=== PATIENT | female | born 1940 | race Caucasian/White ===

== ENCOUNTER 2021-08-07 14:58 | Emergency (ER) | payer MEDICARE, MEDICAID ==
[~2021-08-07] VITALS: Ht 157.5 cm; Wt 68.2 kg
[2021-08-07 16:42] LABS: BASOPHILS # (AUTO) 0.1 X10'3 (0-0.2); MEAN CORPUSCULAR VOLUME 101.1 FL (78-98)
[2021-08-07 16:44] LABS: BASOPHILS % (AUTO) 1.9 % (0-1); EOSINOPHILS % (AUTO) 0.5 % (0-6); HEMATOCRIT 37.2 % (35.0-45.0); HEMOGLOBIN 12.7 g/dl (12.0-16.0); LYMPHOCYTES # (AUTO) 2.2 X10'3 (1.1-4.8); LYMPHOCYTES % (AUTO) 39.4 % (21-51); MEAN CORPUSCULAR HEMOGLOBIN 34.5 PG (27.0-31.0); MEAN CORPUSCULAR HGB CONC 34.2 g/dL (33.0-36.5); MEAN PLATELET VOLUME 9.8 FL (7.4-10.4); MONOCYTES % (AUTO) 17.1 % (2-12); NEUTROPHILS # (AUTO) 2.3 X10'3 (1.8-7.7); NEUTROPHILS % (AUTO) 41.1 % (42-75); PLATELET COUNT 91 X10'3 (140-440); RED BLOOD COUNT 3.68 X10'6 (4.20-5.60); RED CELL DISTRIBUTION WIDTH 15.4 % (11.5-14.5); WHITE BLOOD COUNT 5.6 X10'3 (4.5-11.0)
[2021-08-07 16:55] LABS: APTT 28 SECONDS (22-32)
[2021-08-07 16:57] LABS: ALANINE AMINOTRANSFERASE 28 U/L (12-78); ALBUMIN 3.9 G/DL (3.4-5.0); ALBUMIN/GLOBULIN RATIO 1.4 (1.1-1.5); ALKALINE PHOSPHATASE 58 IU/L (46-116); ANION GAP 7 (8-16); ASPARTATE AMINO TRANSFERASE 18 U/L (10-37); BILIRUBIN,TOTAL 0.5 MG/DL (0.1-1.0); BLOOD UREA NITROGEN 10 MG/DL (7-18); BUN/CREATININE RATIO 11.2 (6.6-38.0); CALCIUM 8.7 MG/DL (8.5-10.1); CHLORIDE 102 MMOL/L (99-107); CREATININE 0.89 MG/DL (0.40-0.90); GLUCOSE 96 MG/DL (70-104); POTASSIUM 4.8 MMOL/L (3.5-5.1); SODIUM 138 MMOL/L (135-145); TOTAL CARBON DIOXIDE 28.9 MMOL/L (24-32); TOTAL PROTEIN 6.7 G/DL (6.4-8.2); eGFR 61 ML/MIN
[2021-08-07 17:44] LABS: PLATELET ESTIMATE DECREASED
[2021-08-07 17:45] LABS: ELLIPTOCYTES 2+; SCHISTOCYTES FEW
[2021-08-07 17:46] LABS: ACANTHOCYTES FEW; BURR CELLS FEW
[2021-08-07] MEDS ORDERED: iohexol 350 MG/ML 50ML vial IV ONE (18:43)
[2021-08-07] MEDS ORDERED: iohexol 350MG/ML 100ml bottle IV ONE (18:43)
--- NOTE | 2021-08-07 19:38 | NUR ---
PT IN [place]
[2021-08-07] MEDS ORDERED: HYDROcodone/acetaminophen 5mg/325mg tablet PO ONE (21:05)
[2021-08-07] MEDS ORDERED: ondansetron 4mg rapidly disintigrating tab PO ONE (21:05)
[2021-08-07] MEDS ORDERED: HYDR-3965 PO (21:07)
[2021-08-07] MEDS ORDERED: ONDA4TAB12 PO (21:07)
[2021-08-07 21:54] VITALS: BP 145/84
== END 2021-08-07 22:18 | disposition home or self-care (01) ==
LOC: ER 14:58
DX: I99.8 Other disorder of circulatory system (principal); M79.671 Pain in right foot; I73.9 Peripheral vascular disease, unspecified; E78.00 Pure hypercholesterolemia, unspecified; I10 Essential (primary) hypertension; M19.90 Unspecified osteoarthritis, unspecified site; G89.29 Other chronic pain; F41.9 Anxiety disorder, unspecified; F32.A Depression, unspecified; Z86.73 Personal history of transient ischemic attack (TIA), and cerebral infarction without residual deficits; Z90.49 Acquired absence of other specified parts of digestive tract; Z90.710 Acquired absence of both cervix and uterus; Z98.890 Other specified postprocedural states; Z60.2 Problems related to living alone; Z88.5 Allergy status to narcotic agent; Z88.8 Allergy status to other drugs, medicaments and biological substances; Z79.899 Other long term (current) drug therapy
CPT/HCPCS: 36415; 73706; 80053; 85008; 85025; 85610; 85730; 93005; 93926; 99285; Q9967